=== PATIENT | female | born 1970 | race Caucasian/White ===

== ENCOUNTER 2018-01-05 17:24 | Emergency (ER) | payer OTHER ==
[2018-01-05 17:40] VITALS: BP 127/91
--- NOTE | 2018-01-05 19:28 | EDM.PDOC ---
ED HPI GENERAL MEDICAL PROBLEM - General Chief Complaint: Genitourinary Problem Stated Complaint: UTI Time Seen by Provider: 01/05/18 18:25 Source of Information: Reports: Patient History Limitations: Reports: No Limitations - History of Present Illness INITIAL COMMENTS - FREE TEXT/NARRATIVE: This lady comes in for UTI symptoms. She complains of burning on urination urination frequency urgency and that type of thing possibly some mild fever a little bit of back pain. She was seen on December 26 in clinic found to have a UTI put on nitrofurantoin which she is now finished. Culture then showed Escherichia coli which is sensitive to everything tested including the nitrofurantoin. She is asking if there could be some block it's it's preventing her from emptying her bladder and wonders if that might be making her go all the time but she doesn't feel a distended bladder however Pelvic Pain Score (Numeric/FACES): 6 - Related Data Allergies Allergy/AdvReac Type Severity Reaction Status Date / Time Penicillins Allergy Difficulty Verified 01/05/18 17:44 Swallowing Sulfa (Sulfonamide Allergy Rash Verified 01/05/18 17:44 Antibiotics) Home Meds: Home Meds Fluticasone Propionate [Flovent Diskus] 50 mcg IH DAILY 01/05/18 [History] Levonor/Ethi 1 tab PO DAILY 01/05/18 [History] Phenazopyridine [Pyridium] 200 mg PO TID 01/05/18 [History] Past Medical History HEENT History: Reports: Sinusitis Genitourinary History: Reports: UTI, Recurrent 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 ED EXAM, RENAL/ - Physical Exam Exam: See Below Exam Limited By: No Limitations General Appearance: Alert, WD/WN, No Apparent Distress Respiratory/Chest: Lungs Clear Cardiovascular: Regular Rate, Rhythm GI/Abdominal: Soft, Non-Tender (Female) Exam: Other (Bladder is not distended) Skin Exam: Warm, Dry Course - Vital Signs Last Recorded V/S: Last Vital Signs Temp 37.0 C 01/05/18 17:42 Pulse 129 H 01/05/18 17:42 Resp 16 01/05/18 17:42 BP 127/91 H 01/05/18 17:42 Pulse Ox 95 01/05/18 17:42 - Orders/Labs/Meds Orders: Active Orders 24 hr Category Date Time Status CULTURE URINE [RM] Stat Lab 01/05/18 19:19 Ordered Labs: Laboratory Tests 01/05/18 Range/Units 18:39 Urine Color [place] Urine Appearance Slightly cloudy Urine pH 5.0 (4.5-8.0) Ur Specific [place] 1.020 (1.008-1.030) Urine Protein 100 H (NEGATIVE) mg/dL Urine Glucose (UA) Normal (NEGATIVE) mg/dL Urine Ketones Negative (NEGATIVE) mg/dL Urine Occult Blood Large (NEGATIVE) Urine Nitrite Positive H (NEGATIVE) Urine Bilirubin Moderate (NEGATIVE) Urine Urobilinogen 8 (NORMAL) mg/dL Ur Leukocyte Esterase Small (NEGATIVE) Urine RBC 10-20 H (0-5) Urine WBC 40-50 H (0-5) Ur Epithelial Cells Few Amorphous Sediment Not seen Urine Bacteria Moderate Urine Mucus Moderate Departure - Departure Time of Disposition: 19:27 Disposition: Home, Self-Care 01 Condition: Fair Clinical Impression: UTI, Urinary tract infectious disease - Discharge Information Referrals: Wilman Bill MD [Primary Care Provider] - Additional Instructions: Take Cipro 500 mg twice daily for 1 week. A urine culture has been sent. Continue using the 80s O for discomfort. Be sure to drink a lot of water. Follow -up with your doctor in a few days. If there are questions about whether or not you're able to empty her bladder fully a catheter can be put in after you have voided to see if there is left over urine in the bladder. That could contribute to an infection. On examination her bladder did not appear to be distended. And it's necessary to treat the infection before anything else is done. You're welcome to return to the ER at any time - My Orders Last 24 Hours: My Active Orders 01/05/18 19:19 CULTURE URINE [RM] Stat - Assessment/Plan Last 24 Hours: My Active Orders 01/05/18 19:19 CULTURE URINE [RM] Stat
== END 2018-01-05 19:33 | disposition home or self-care (01) ==
LOC: JP.ED 17:24
DX: N39.0 Urinary tract infection, site not specified (principal); Z88.0 Allergy status to penicillin; Z88.2 Allergy status to sulfonamides; Z79.899 Other long term (current) drug therapy
CPT/HCPCS: 81001; 87086; 87088; 87186; 99284

== ENCOUNTER 2018-06-16 22:00 | Inpatient (IN) | payer OTHER ==
[2018-06-16] MEDS ORDERED: HYDROmorphone 0.5 MG/0.5 ML Syringe IVPUSH ONE ×2 (22:32→23:15)
[2018-06-16] MEDS ORDERED: Ondansetron 4 MG/2 ML SDV IVPUSH ONE (22:32)
--- NOTE | 2018-06-16 22:34 | EDM.PDOC ---
ED HPI GENERAL MEDICAL PROBLEM - General Chief Complaint: Chest Pain Stated Complaint: UPPER ABD PAIN Time Seen by Provider: 06/16/18 22:34 Source of Information: Reports: Patient History Limitations: Reports: No Limitations - History of Present Illness INITIAL COMMENTS - FREE TEXT/NARRATIVE: pt developed a sudden onset of upper abdomanal pain. She had supper chicken, corn and mashed potatoes and she developed the pain about 2 hrs later. She has not had discomfort like this in the past. She became nauseated and did vomit several times. She stated the pain made her get very sweaty. She has not had known gb problems. Onset: Today, Sudden, Other (This occured about 2 hours after eating. ) Duration: Hour(s): Location: Reports: Abdomen Associated Symptoms: Reports: Diaphoresis, Nausea/Vomiting, Other ( severe abdom ,anal pain. ) Chest Pain Score (Numeric/FACES): 8 Abdominal Pain Score (Numeric/FACES): 2 - Related Data Allergies Allergy/AdvReac Type Severity Reaction Status Date / Time Penicillins Allergy Difficulty Verified 06/16/18 22:23 Swallowing Sulfa (Sulfonamide Allergy Rash Verified 06/16/18 22:23 Antibiotics) Home Meds: Home Meds Fluticasone Propionate [Flovent Diskus] 50 mcg IH DAILY 01/05/18 [History] Cholecalciferol (Vitamin D3) [Vitamin D] 2 tab PO ACBREAKFAST 06/16/18 [History] Estrodim 2 tab PO BID 06/16/18 [History] Iron Extra 1 tab PO BID 06/16/18 [History] Niacinamide [Niacin] 1 tab PO ASDIRECTED 06/16/18 [History] [place]-3/DHA/Epa/Fish Oil [EPA-DHA 720 Softgel] 1 tab PO DAILY 06/16/18 [History] Pyridoxal Phosphate [Xjhdmjofi-5-Cldmwhcda] 50 mg PO BID 06/16/18 [History] Tetracumin 2 tab PO BID 06/16/18 [History] Zinc Citrate/Phytase [Zytaze] 1 tab PO BID 06/16/18 [History] Past Medical History HEENT History: Reports: Sinusitis Genitourinary History: Reports: UTI, Recurrent 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: , 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 (See Below) 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: menorrhagia with regular cycles Neurological History: Reports: Migraines Psychiatric History: Reports: Depression - Infectious Disease History Infectious Disease History: Reports: Chicken Pox Social & Family History - Family History Family Medical History: Noncontributory - Tobacco Use Smoking Status *Q: Never Smoker Second Hand Smoke Exposure: No - Caffeine Use Caffeine Use: Reports: Coffee, Tea - Recreational Drug Use Recreational Drug Use: No ED ROS GENERAL - Review of Systems Review Of Systems: See Below Constitutional: Reports: No Symptoms HEENT: Reports: No Symptoms Respiratory: Reports: No Symptoms Cardiovascular: Reports: No Symptoms, Other ( The abdomanal pain does go up into the chest at times. ) Endocrine: Reports: No Symptoms GI/Abdominal: Reports: Abdominal Pain, Nausea, Vomiting : Reports: No Symptoms Musculoskeletal: Reports: No Symptoms Skin: Reports: No Symptoms Neurological: Reports: No Symptoms ED EXAM, GENERAL - Physical Exam Exam: See Below Free Text/Narrative:: Pt arrived very uncomfortable with pain centering in the epigastric area. She has alot of rt upper abdomanal pain. She has vomited several times prior to the arrival. She has not had pain such as this . Exam Limited By: No Limitations General Appearance: Alert, Anxious, Severe Distress, Other (pupils equal and reactive. ) Ears: Normal TMs Nose: Normal Inspection Throat/Mouth: Normal Inspection Head: Atraumatic Neck: Normal Inspection Respiratory/Chest: No Respiratory Distress Cardiovascular: Regular Rate, Rhythm, Tachycardia GI/Abdominal: Soft, Non-Tender (Female) Exam: Deferred Rectal (Female) Exam: Deferred Back Exam: Normal Inspection Extremities: Normal Inspection Neurological: Alert, Oriented, Normal Cognition Course - Vital Signs Last Recorded V/S: Last Vital Signs Temp 36.1 C 06/19/18 15:29 Pulse 60 06/19/18 15:29 Resp 16 06/19/18 15:29 BP 112/59 L 06/19/18 15:29 Pulse Ox 60 L 06/19/18 15:29 - Orders/Labs/Meds Orders: Medication Orders Acetaminophen (Tylenol Extra Strength) 1,000 mg PO Q6H BRUNO Last Admin: 06/19/18 16:38 Dose: 1,000 mg Hydrocodone Bitart/Acetaminophen ([place] 325-5 Mg) 1 - 2 tab PO Q4H PRN PRN Reason: PAIN Last Admin: 06/19/18 14:34 Dose: 2 tab Fentanyl Citrate (Fentanyl In Ns 20 Mcg/Ml 30 Ml Tong Carrier) 0 mcg IV ASDIRECTED PRN; Protocol PRN Reason: DATA MODELER PAIN Dextrose/Lactated Ringer's (Dextrose 5%-Lactated Ringers) 1,000 mls @ 100 mls/ hr IV ASDIRECTED [facility] Last Admin: 06/19/18 12:36 Dose: 100 mls/hr Cefoxitin Sodium 2 gm/ Sodium (Chloride) 50 mls @ 100 mls/hr IV Q6H [facility] Last Admin: 06/19/18 16:37 Dose: 100 mls/hr Ibuprofen (Motrin) 600 mg PO Q6H [facility] Last Admin: 06/19/18 18:23 Dose: 600 mg Admin: 06/19/18 13:08 Dose: 600 mg Lorazepam (Ativan) 1 mg IVPUSH Q4H PRN PRN Reason: Nausea/Vomiting Last Admin: 06/19/18 13:21 Dose: 1 mg Naloxone HCl (Narcan) 0.1 mg IV ASDIRECTED PRN PRN Reason: RESP RATE BELOW Scopolamine Patch (Placement) 1 each TOP DAILY [facility] Last Admin: 06/19/18 13:09 Dose: Ondansetron HCl (Zofran) 4 mg IV Q4H PRN PRN Reason: Nausea/Vomiting Last Admin: 06/19/18 12:30 Dose: 4 mg Pantoprazole Sodium (Protonix Iv) 40 mg IVPUSH Q24H [facility] Last Admin: 06/19/18 13:09 Dose: 40 mg Scopolamine (Transderm-Scop) 1.5 mg TOP Q72H [facility] Labs: Laboratory Tests 06/16/18 06/16/18 06/16/18 Range/Units 22:33 22:33 22:33 WBC 12.8 H (4.5-11.0) K/uL RBC 4.37 (3.30-5.50) M/uL Hgb 13.0 (12.0-15.0) g/dL Hct 37.7 (36.0-48.0) % MCV 86 (80-98) fL MCH 30 (27-31) pg MCHC 35 (32-36) % Plt Count 230 (150-400) K/uL Neut % (Auto) 82 H (36-66) % Lymph % (Auto) 11 L (24-44) % [place] % (Auto) 6 (2-6) % Eos % (Auto) 0 L (2-4) % Baso % (Auto) 0 (0-1) % Sodium 137 L (140-148) mmol/L Potassium 3.7 (3.6-5.2) mmol/L Chloride 102 (100-108) mmol/L Carbon Dioxide 27 (21-32) mmol/L Anion Gap 11.7 (5.0-14.0) mmol/L BUN 15 (7-18) mg/dL Creatinine 0.8 (0.6-1.0) mg/dL Est Cr Clr Drug Dosing 73.46 mL/min Estimated GFR (MDRD) > 60 (>60) Glucose 131 H (74-106) mg/dL Calcium 9.1 (8.5-10.1) mg/dL Total Bilirubin 0.5 (0.2-1.0) mg/dL AST 81 H (15-37) U/L ALT 116 H (12-78) U/L Alkaline Phosphatase 54 (46-116) U/L Troponin I (0.000-0.056) ng/mL Total Protein 6.7 (6.4-8.2) g/dL Albumin 3.6 (3.4-5.0) g/dL Globulin 3.1 (2.3-3.5) g/dL Albumin/Globulin Ratio 1.2 (1.2-2.2) Amylase 127 H (25-115) U/L Lipase 1736 H (73-393) U/L Urine Color Red Urine Appearance Cloudy Urine pH 7.0 (4.5-8.0) Ur Specific [place] 1.010 (1.008-1.030) Urine Protein 30 H (NEGATIVE) mg/dL Urine Glucose (UA) Normal (NEGATIVE) mg/dL Urine Ketones 15 H (NEGATIVE) mg/dL Urine Occult Blood Large (NEGATIVE) Urine Nitrite Negative (NEGATIVE) Urine Bilirubin Negative (NEGATIVE) Urine Urobilinogen Normal (NORMAL) mg/dL Ur Leukocyte Esterase Small (NEGATIVE) Urine RBC Packed H (0-5) Urine WBC 0-5 (0-5) Ur Epithelial Cells Few Amorphous Sediment Few Urine Bacteria Rare Urine Mucus Few 06/16/18 Range/Units 22:34 WBC (4.5-11.0) K/uL RBC (3.30-5.50) M/uL Hgb (12.0-15.0) g/dL Hct (36.0-48.0) % MCV (80-98) fL MCH (27-31) pg MCHC (32-36) % Plt Count (150-400) K/uL Neut % (Auto) (36-66) % Lymph % (Auto) (24-44) % [place] % (Auto) (2-6) % Eos % (Auto) (2-4) % Baso % (Auto) (0-1) % Sodium (140-148) mmol/L Potassium (3.6-5.2) mmol/L Chloride (100-108) mmol/L Carbon Dioxide (21-32) mmol/L Anion Gap (5.0-14.0) mmol/L BUN (7-18) mg/dL Creatinine (0.6-1.0) mg/dL Est Cr Clr Drug Dosing mL/min Estimated GFR (MDRD) (>60) Glucose (74-106) mg/dL Calcium (8.5-10.1) mg/dL Total Bilirubin (0.2-1.0) mg/dL AST (15-37) U/L ALT (12-78) U/L Alkaline Phosphatase (46-116) U/L Troponin I < 0.017 (0.000-0.056) ng/mL Total Protein (6.4-8.2) g/dL Albumin (3.4-5.0) g/dL Globulin (2.3-3.5) g/dL Albumin/Globulin Ratio (1.2-2.2) Amylase (25-115) U/L Lipase (73-393) U/L Urine Color Urine Appearance Urine pH (4.5-8.0) Ur Specific [place] (1.008-1.030) Urine Protein (NEGATIVE) mg/dL Urine Glucose (UA) (NEGATIVE) mg/dL Urine Ketones (NEGATIVE) mg/dL Urine Occult Blood (NEGATIVE) Urine Nitrite (NEGATIVE) Urine Bilirubin (NEGATIVE) Urine Urobilinogen (NORMAL) mg/dL Ur Leukocyte Esterase (NEGATIVE) Urine RBC (0-5) Urine WBC (0-5) Ur Epithelial Cells Amorphous Sediment Urine Bacteria Urine Mucus Meds: Medications Generic Name Dose Route Start Last Admin Trade Name Freq PRN Reason Stop Dose Admin Acetaminophen 1,000 mg 06/19/18 16:00 06/19/18 16:38 Tylenol Extra Strength PO 1,000 mg Q6H [facility]URNO Administration Hydrocodone Bitart/Acetaminophen 1 - 2 tab 06/19/18 13:00 06/19/18 14:34 [place] 325-5 Mg PO 2 tab Q4H PRN Administration PAIN Fentanyl Citrate 0 mcg 06/19/18 12:08 Fentanyl In Ns 20 Mcg/Ml 30 Ml Tong Carrier IV ASDIRECTED PRN DATA MODELER PAIN Protocol Dextrose/Lactated Ringer's 1,000 mls @ 100 mls/hr 06/19/18 12:15 06/19/18 12: 36 Dextrose 5%-Lactated Ringers IV 100 mls/hr ASDIRECTED [facility]UNO Administration Cefoxitin Sodium 2 gm/ Sodium 50 mls @ 100 mls/hr 06/19/18 16:00 06/19/18 16: 37 Chloride IV 100 mls/hr Q6H BRUNO Administration Ibuprofen 600 mg 06/19/18 12:00 06/19/18 18:23 Motrin PO 600 mg Q6H [facility]UNO Administration Lorazepam 1 mg 06/19/18 13:13 06/19/18 13:21 Ativan IVPUSH 1 mg Q4H PRN Administration Nausea/Vomiting Naloxone HCl 0.1 mg 06/19/18 12:08 Narcan IV ASDIRECTED PRN RESP RATE BELOW Scopolamine Patch 1 each 06/19/18 14:00 06/19/18 13:09 Placement TOP Not Given DAILY [facility] Ondansetron HCl 4 mg 06/17/18 01:21 06/19/18 12:30 Zofran IV 4 mg Q4H PRN Administration Nausea/Vomiting Pantoprazole Sodium 40 mg 06/19/18 13:00 06/19/18 13:09 Protonix Iv IVPUSH 40 mg Q24H BRUNO Administration Scopolamine 1.5 mg 06/22/18 09:00 Transderm-Scop TOP Q72H BRUNO Discontinued Medications Generic Name Dose Route Start Last Admin Trade Name Freq PRN Reason Stop Dose Admin Acetaminophen 650 mg 06/17/18 01:21 06/18/18 11:45 Tylenol PO 650 mg Q4H PRN Administration Pain (Mild 1-3)/fever Acetaminophen 1,000 mg 06/19/18 08:00 06/19/18 08:40 Tylenol Extra Strength PO 06/19/18 08:01 1,000 mg ONETIME ONE Administration Albuterol 2.5 mg 06/17/18 01:21 Proventil Neb Soln NEB Q4H PRN Shortness Of Breath/wheezing Bisacodyl 5 mg 06/17/18 01:21 Dulcolax PO DAILY PRN Constipation Bupivacaine HCl/Epinephrine Bitart Confirm 06/19/18 08:34 06/19/18 10:35 Marcaine 0.5%/Epinephrine 1:200,000 Administered 06/19/18 08:35 20 ml Dose Administration 50 ml .ROUTE .STK-MED ONE Ropivacaine 32 ml/ 0 ml 06/19/18 09:00 06/19/18 10:12 Dexamethasone 8 mg/ NERVRT 80 syringe Epinephrine HCl 0.4 mg/ Sodium ASDIRECTED BRUNO Administration Chloride 45.6 ml Dexamethasone Confirm 06/19/18 07:10 Dexamethasone Administered 06/19/18 07:11 Dose 4 mg .ROUTE .STK-MED ONE Docusate Sodium 100 mg 06/17/18 01:21 Colace PO BID PRN Constipation Fentanyl Confirm 06/19/18 07:09 Sublimaze Administered 06/19/18 07:10 Dose 250 mcg .ROUTE .STK-MED ONE Glycopyrrolate Confirm 06/19/18 07:10 Robinul Administered 06/19/18 07:11 Dose 1 mg .ROUTE .STK-MED ONE Hydromorphone HCl 0.5 mg 06/16/18 22:32 06/16/18 22:36 Dilaudid IVPUSH 06/16/18 22:33 0.5 mg ONETIME ONE Administration Hydromorphone HCl 0.5 mg 06/16/18 23:15 06/16/18 23:20 Dilaudid IVPUSH 06/16/18 23:16 0.5 mg ONETIME ONE Administration Sodium Chloride 1,000 mls @ 999 mls/hr 06/16/18 22:45 06/16/18 22:44 Normal Saline IV 999 mls/hr ASDIRECTED BRUNO Administration Sodium Chloride 1,000 mls @ 999 mls/hr 06/16/18 23:30 06/16/18 23:45 Normal Saline IV 999 mls/hr ASDIRECTED BRUNO Administration Sodium Chloride 70 mls @ 3 mls/sec 06/17/18 00:27 06/17/18 00:54 Normal Saline IV 06/17/18 00:28 3 mls/sec ASDIRECTED STA Administration Lactated Ringer's 1,000 mls @ 125 mls/hr 06/17/18 01:21 06/17/18 01:52 Ringers, Lactated IV 125 mls/hr ASDIRECTED BRUNO Administration Lactated Ringer's 500 mls @ 500 mls/hr 06/17/18 11:30 Ringers, Lactated IV 06/17/18 12:31 ASDIRECTED BRUNO Levofloxacin/Dextrose 500 mg/ 100 mls @ 100 mls/hr 06/19/18 09:00 06/19/18 08 :41 Premix IV 06/19/18 09:59 100 mls/hr ONETIME ONE Administration Lactated Ringer's 1,000 mls @ 100 mls/hr 06/19/18 07:15 Ringers, Lactated IV ASDIRECTED BRUNO Lactated Ringer's Confirm 06/19/18 10:25 Ringers, Lactated Administered 06/19/18 10:26 Dose 1,000 mls @ as directed .ROUTE .STK-MED ONE Ibuprofen 600 mg 06/19/18 08:00 06/19/18 08:40 Motrin PO 06/19/18 08:01 600 mg ONETIME ONE Administration Iopamidol 100 ml 06/17/18 00:27 06/17/18 00:54 Isovue-300 (61%) IV 06/17/18 00:28 100 ml . DIRECTED STA Administration Ketamine HCl 28 mg 06/19/18 09:00 Ketalar IV ASDIRECTED [facility]UNO Lorazepam 1 mg 06/17/18 01:21 06/17/18 01:53 Ativan IV 1 mg Q6H PRN Administration Nausea/Vomiting Morphine Sulfate 2 mg 06/17/18 01:21 Morphine IVPUSH Q2H PRN Pain (severe 7-10) Neostigmine Methylsulfate Confirm 06/19/18 07:10 Neostigmine Administered 06/19/18 07:11 Dose 5 mg .ROUTE .STK-MED ONE Ondansetron HCl 4 mg 06/16/18 22:32 06/16/18 22:36 Zofran IVPUSH 08/13/18 22:33 4 mg ONETIME ONE Administration Ondansetron HCl 4 mg 06/17/18 00:32 06/17/18 00:42 Zofran IVPUSH 06/17/18 00:33 4 mg ONETIME ONE Administration Ondansetron HCl 4 mg 06/17/18 01:21 Zofran Odt PO Q6H PRN Nausea able to take PO Ondansetron HCl Confirm 06/19/18 07:10 Zofran Administered 06/19/18 07:11 Dose 4 mg .ROUTE .STK-MED ONE Oxycodone/Acetaminophen 1 tab 06/17/18 01:21 Percocet 325-5 Mg PO Q4H PRN Pain (moderate 4-6) Pantoprazole Sodium 40 mg 06/17/18 01:21 06/17/18 01:53 Protonix Iv IV 40 mg Q12H BRUNO Administration Pantoprazole Sodium 40 mg 06/17/18 10:00 Protonix Iv IV Q12H BRUNO Propofol Confirm 06/19/18 07:10 Diprivan 20 Ml Administered 06/19/18 07:11 Dose 200 mg .ROUTE .STK-MED ONE Rocuronium [place] Confirm 06/19/18 07:10 Zemuron Administered 06/19/18 07:11 Dose 50 mg .ROUTE .STK-MED ONE Scopolamine 1.5 mg 06/19/18 09:41 06/19/18 10:11 Transderm-Scop TOP 06/19/18 09:42 1.5 mg ONETIME ONE Administration Succinylcholine Chloride Confirm 06/19/18 07:10 Quelicin Administered 06/19/18 07:11 Dose 200 mg .ROUTE .STK-MED ONE Zolpidem Tartrate 5 mg 06/17/18 01:21 Ambien PO BEDTIME PRN Sleep - Re-Assessments/Exams Free Text/Narrative Re-Assessment/Exam: 06/17/18 00:02 pt was found to have elevated liver enzymes. Her lipase is high. She continues to be very uncomfortable. A US of the gall bladder was obtained. 06/17/18 00:20 Us did not reveal any evidence of GB disease. Will obtain a cat scan of the abdoman. 06/19/18 18:46 cat scan does show some layering of Calcium. Departure - Departure Time of Disposition: 00:20 Disposition: Admitted As Inpatient 64 Condition: Fair Clinical Impression: Pancreatitis
[2018-06-16] MEDS ORDERED: Sodium Chloride 0.9% 1,000 ML IV SCH ×2 (22:45→23:30)
[2018-06-17] MEDS ORDERED: Iopamidol 612 MG/ML 100 ML Bottle IV STA (00:27)
[2018-06-17] MEDS ORDERED: Ondansetron 4 MG/2 ML SDV IVPUSH ONE (00:32)
--- NOTE | 2018-06-17 01:11 | PCM.HP ---
H&P History of Present Illness - General Date of Service: 06/16/18 Admit Problem/Dx: Admission Diagnosis/Problem Admission Diagnosis/Problem Pancreatitis Source of Information: Patient, Family ( Kin) History Limitations: Reports: No Limitations - History of Present Illness Initial Comments - Free Text/Narative: pt developed a sudden onset of upper abdomanal pain. She had supper chicken, corn and mashed potatoes and she developed the pain about 2 hrs later. She has not had discomfort like this in the past. She became nauseated and did vomit several times. She stated the pain made her get very sweaty. She has not had known gb problems. Onset: Today, Sudden, Other (This occured about 2 hours after eating. ) Duration: Hour(s): Location: Reports: Abdomen Associated Symptoms: Reports: Diaphoresis, Nausea/Vomiting, Other ( severe abdom ,anal pain. ) Chest Onset of Symptoms: Reports: Sudden Duration of Symptoms: Reports: Hour(s): Location: Reports: Abdomen Quality: Reports: Sharp, Other Severity: Severe (Nausea) Improves with: Reports: None Worsens with: Reports: None Associated Symptoms: Reports: Fever/Chills, Loss of Appetite, Malaise, Nausea/ Vomiting, Weakness Chest Pain Score (Numeric/FACES): 8 - Related Data Allergies/Adverse Reactions: Allergies Allergy/AdvReac Type Severity Reaction Status Date / Time Penicillins Allergy Difficulty Verified 06/16/18 22:23 Swallowing Sulfa (Sulfonamide Allergy Rash Verified 06/16/18 22:23 Antibiotics) Home Medications: Home Meds Fluticasone Propionate [Flovent Diskus] 50 mcg IH DAILY 01/05/18 [History] Cholecalciferol (Vitamin D3) [Vitamin D] 2 tab PO ACBREAKFAST 06/16/18 [History] Estrodim 2 tab PO BID 06/16/18 [History] Iron Extra 1 tab PO BID 06/16/18 [History] Niacinamide [Niacin] 1 tab PO ASDIRECTED 06/16/18 [History] [place]-3/DHA/Epa/Fish Oil [EPA-DHA 720 Softgel] 1 tab PO DAILY 06/16/18 [History] Pyridoxal Phosphate [Isyvyyira-3-Wlcikqsqe] 50 mg PO BID 06/16/18 [History] Tetracumin 2 tab PO BID 06/16/18 [History] Zinc Citrate/Phytase [Zytaze] 1 tab PO BID 06/16/18 [History] Past Medical History HEENT History: Reports: Sinusitis Genitourinary History: Reports: UTI, Recurrent 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: , Other (See Below) Other OB/BYN History: menorrhagia with regular cycles Neurological History: Reports: Migraines Psychiatric History: Reports: Depression - Infectious Disease History Infectious Disease History: Reports: Chicken Pox Social & Family History - Family History Family Medical History: Noncontributory - Tobacco Use Smoking Status *Q: Never Smoker Second Hand Smoke Exposure: No - Caffeine Use Caffeine Use: Reports: Coffee, Tea - Recreational Drug Use Recreational Drug Use: No - Living Situation & Occupation Living situation: Reports: H&P Review of Systems - Review of Systems: Review Of Systems: See Below General: Reports: Fever, Chills, Malaise, Weakness, Fatigue, Diaphoresis, Other (Acute abdominal pain) HEENT: Reports: No Symptoms Pulmonary: Reports: No Symptoms Cardiovascular: Reports: No Symptoms Gastrointestinal: Reports: Abdominal Pain, Decreased Appetite, Nausea, Vomiting Genitourinary: Reports: No Symptoms Musculoskeletal: Reports: No Symptoms Skin: Reports: No Symptoms Psychiatric: Reports: No Symptoms Neurological: Reports: No Symptoms Hematologic/Lymphatic: Reports: No Symptoms Immunologic: Reports: No Symptoms Exam - Exam Exam: See Below - Vital Signs Vital Signs: Last Vital Signs Temp 35.8 C 06/16/18 22:24 Pulse 74 06/16/18 23:22 Resp 24 H 06/16/18 23:22 BP 130/80 06/16/18 23:22 Pulse Ox 100 06/16/18 22:24 Weight: 61.6 kg - Exam General: Alert, Oriented, Cooperative, Severe Distress (Actively vomiting during exam) HEENT: PERRLA, Conjunctiva Clear, EACs Clear, Hearing Intact Neck: Supple, Trachea Midline Lungs: Clear to Auscultation, Normal Respiratory Effort Cardiovascular: Regular Rate, Regular Rhythm, Normal S1, Normal S2 GI/Abdominal Exam: Soft, Tender (Upper abdominal pain acute), Abnormal Bowel Sounds (Hypoactive) (Female) Exam: Deferred Rectal (Female) Exam: Deferred Back Exam: Normal Inspection, Full Range of Motion, NT Extremities: Normal Inspection, Normal Range of Motion, Non-Tender, No Pedal Edema, Normal Capillary Refill Skin: Warm, Intact, Moist Neurological: Cranial Nerves Intact, Reflexes Equal Bilateral Neuro Extensive - Mental Status: Alert, Oriented x3, Normal Mood/Affect, Normal Cognition Neuro Extensive - Motor, Sensory, Reflexes: Normal Gait, Normal Reflexes Psychiatric: Alert, Normal Affect, Normal Mood - Patient Data Lab Results Last 24 hrs: Laboratory Results - last 24 hr 06/16/18 06/16/18 06/16/18 Range/Units 22:33 22:33 22:34 WBC 12.8 H (4.5-11.0) K/uL RBC 4.37 (3.30-5.50) M/uL Hgb 13.0 (12.0-15.0) g/dL Hct 37.7 (36.0-48.0) % MCV 86 (80-98) fL MCH 30 (27-31) pg MCHC 35 (32-36) % Plt Count 230 (150-400) K/uL Neut % (Auto) 82 H (36-66) % Lymph % (Auto) 11 L (24-44) % [place] % (Auto) 6 (2-6) % Eos % (Auto) 0 L (2-4) % Baso % (Auto) 0 (0-1) % Sodium 137 L (140-148) mmol/L Potassium 3.7 (3.6-5.2) mmol/L Chloride 102 (100-108) mmol/L Carbon Dioxide 27 (21-32) mmol/L Anion Gap 11.7 (5.0-14.0) mmol/L BUN 15 (7-18) mg/dL Creatinine 0.8 (0.6-1.0) mg/dL Est Cr Clr Drug Dosing 73.46 mL/min Estimated GFR (MDRD) > 60 (>60) Glucose 131 H (74-106) mg/dL Calcium 9.1 (8.5-10.1) mg/dL Total Bilirubin 0.5 (0.2-1.0) mg/dL AST 81 H (15-37) U/L ALT 116 H (12-78) U/L Alkaline Phosphatase 54 (46-116) U/L Troponin I < 0.017 (0.000-0.056) ng/mL Total Protein 6.7 (6.4-8.2) g/dL Albumin 3.6 (3.4-5.0) g/dL Globulin 3.1 (2.3-3.5) g/dL Albumin/Globulin Ratio 1.2 (1.2-2.2) Amylase 127 H (25-115) U/L Lipase 1736 H (73-393) U/L Result Diagrams: 06/16/18 22:33 06/16/18 22:33 - Problem List (1) Pancreatitis SNOMED Code(s): 29236818 ICD Code: K85.90 - ACUTE PANCREATITIS WITHOUT NECROSIS OR INFECTION, UNSP Status: Acute Priority: High Current Visit: Yes Qualifiers: Chronicity: acute Pancreatitis type: unspecified pancreatitis type Problem List Initiated/Reviewed/Updated: Yes Orders Last 24hrs: Active Orders 24 hr Category Date Time Status Patient Status Manage Transfer [TRANSFER] Routine ADT 06/17/18 00:51 Ordered EKG Documentation Completion [RC] ASDIRECTED Care 06/16/18 22:33 Active Abdomen Ltd [US] Stat Exams 06/16/18 23:13 Taken Abdomen Pelvis w Cont [CT] Stat Exams 06/17/18 00:19 Ordered UA W/MICROSCOPIC [URIN] Urgent Lab 06/16/18 22:33 Ordered Sodium Chloride 0.9% [Normal Saline] 1,000 ml Med 06/16/18 22:45 Active IV ASDIRECTED Sodium Chloride 0.9% [Normal Saline] 1,000 ml Med 06/16/18 23:30 Active IV ASDIRECTED Resuscitation Status Routine Resus Stat 06/17/18 00:52 Ordered EKG 12 Lead [EK] Routine Ther 06/16/18 22:33 Ordered Medication Orders Sodium Chloride (Normal Saline) 1,000 mls @ 999 mls/hr IV ASDIRECTED [facility] Last Admin: 06/16/18 22:44 Dose: 999 mls/hr Sodium Chloride (Normal Saline) 1,000 mls @ 999 mls/hr IV ASDIRECTED [facility] Last Admin: 06/16/18 23:45 Dose: 999 mls/hr Assessment/Plan Comment:: ASSESSMENT / PLAN -This is a 47-year-old female present to ER with complaints of acute abdominal pain starting this evening, having nausea, vomiting and a diarrhea stool. ER workup shows a CBC elevated white count at 12.8, hemoglobin 13.0, hematocrit 37.7, platelets 2:30, chemistry elevated liver function tests, amylase 1736, lipase 127. Ultrasound of upper abdomen does not show any gallbladder disease. Abdomen pelvis CT scan pending. Pancreatitis -Admit to [address] [place] [address] for further monitoring -IV Fluids for rehydration LR at 125 mL per hour -Pain medication ordered -Advise to notify nurses of any chest pain or other symptoms -And a.m. labs: CBC, BMP, lactic acid Maintenance issues -Orders home meds: On hold -Nutrition: Nothing by mouth -Dykes catheter not indicated at this time -DVT: SCD -PPI: IV Protonix 40mg daily CODE STATUS: FULL CODE Admission status: Admit to [address] [place] [address] Admission justification. This patient will be admitted for inpatient services and is medically appropriate meeting medical necessity for inpatient admission as outlined in my documentation. I reasonably expect the patient will require inpatient services that span. Time over 2 midnights. I reasonably expect this patient to be discharged or transferred within 96 hours after admission to the [facility]. Disposition; home Primary care provider: Dr. Bill Hospitalist: Dr. Nuñez
[2018-06-17] MEDS ORDERED: Pantoprazole 40 MG Vial IV SCH ×2 (01:21→10:00)
[2018-06-17] MEDS ORDERED: Albuterol 0.083% 2.5 MG/3 ML Neb Soln NEB PRN (01:21)
[2018-06-17] MEDS ORDERED: Docusate Sodium 100 MG Cap PO PRN (01:21)
[2018-06-17] MEDS ORDERED: Ondansetron 4 MG Tab.DIS PO PRN (01:21)
[2018-06-17] MEDS ORDERED: Morphine 2 MG/ML Syringe IVPUSH PRN (01:21)
[2018-06-17] MEDS ORDERED: Acetaminophen 325 MG Tab PO PRN (01:21)
[2018-06-17] MEDS ORDERED: Ondansetron 4 MG/2 ML SDV IV PRN (01:21)
[2018-06-17] MEDS ORDERED: Lactated Ringers 1,000 ML IV SCH (01:21)
[2018-06-17] MEDS ORDERED: Bisacodyl 5 MG Tab PO PRN (01:21)
[2018-06-17] MEDS ORDERED: Zolpidem 5 MG Tab PO PRN (01:21)
[2018-06-17] MEDS ORDERED: LORazepam 2 MG/ML SDV IV PRN (01:21)
[2018-06-17] MEDS ORDERED: Acetaminophen/oxyCODONE 325-5 MG Tab PO PRN (01:21)
--- NOTE | 2018-06-17 09:39 | PCM.PN ---
- General Info Date of Service: 06/17/18 Functional Status: Reports: Pain Controlled - Review of Systems General: Denies: Fever Gastrointestinal: Reports: Abdominal Pain, Nausea Systems Review Comment:: There were no acute events overnight. The patient has not had any fevers. Her abdominal pain has resolved. She does not have nausea this morning. Lipase level is trending down. White blood cell count is slightly better but still mildly elevated. - Patient Data Vitals - Most Recent: Last Vital Signs Temp 36.2 C 06/17/18 05:21 Pulse 101 H 06/17/18 05:21 Resp 16 06/17/18 05:21 BP 107/57 L 06/17/18 05:21 Pulse Ox 93 L 06/17/18 05:21 Weight - Most Recent: 63.049 kg I&O - Last 24 Hours: Intake & Output 06/16/18 06/17/18 06/17/18 22:59 06:59 14:59 Output Total 400 Balance -400 Lab Results Last 24 Hours: Laboratory Results - last 24 hr 06/16/18 06/16/18 06/16/18 Range/Units 22:33 22:33 22:33 WBC 12.8 H (4.5-11.0) K/uL RBC 4.37 (3.30-5.50) M/uL Hgb 13.0 (12.0-15.0) g/dL Hct 37.7 (36.0-48.0) % MCV 86 (80-98) fL MCH 30 (27-31) pg MCHC 35 (32-36) % Plt Count 230 (150-400) K/uL Neut % (Auto) 82 H (36-66) % Lymph % (Auto) 11 L (24-44) % [place] % (Auto) 6 (2-6) % Eos % (Auto) 0 L (2-4) % Baso % (Auto) 0 (0-1) % Sodium 137 L (140-148) mmol/L Potassium 3.7 (3.6-5.2) mmol/L Chloride 102 (100-108) mmol/L Carbon Dioxide 27 (21-32) mmol/L Anion Gap 11.7 (5.0-14.0) mmol/L BUN 15 (7-18) mg/dL Creatinine 0.8 (0.6-1.0) mg/dL Est Cr Clr Drug Dosing 73.46 mL/min Estimated GFR (MDRD) > 60 (>60) Glucose 131 H (74-106) mg/dL Calcium 9.1 (8.5-10.1) mg/dL Total Bilirubin 0.5 (0.2-1.0) mg/dL AST 81 H (15-37) U/L ALT 116 H (12-78) U/L Alkaline Phosphatase 54 (46-116) U/L Troponin I (0.000-0.056) ng/mL Total Protein 6.7 (6.4-8.2) g/dL Albumin 3.6 (3.4-5.0) g/dL Globulin 3.1 (2.3-3.5) g/dL Albumin/Globulin Ratio 1.2 (1.2-2.2) Amylase 127 H (25-115) U/L Lipase 1736 H (73-393) U/L Urine Color Red Urine Appearance Cloudy Urine pH 7.0 (4.5-8.0) Ur Specific [place] 1.010 (1.008-1.030) Urine Protein 30 H (NEGATIVE) mg/dL Urine Glucose (UA) Normal (NEGATIVE) mg/dL Urine Ketones 15 H (NEGATIVE) mg/dL Urine Occult Blood Large (NEGATIVE) Urine Nitrite Negative (NEGATIVE) Urine Bilirubin Negative (NEGATIVE) Urine Urobilinogen Normal (NORMAL) mg/dL Ur Leukocyte Esterase Small (NEGATIVE) Urine RBC Packed H (0-5) Urine WBC 0-5 (0-5) Ur Epithelial Cells Few Amorphous Sediment Few Urine Bacteria Rare Urine Mucus Few 06/16/18 06/17/18 06/17/18 Range/Units 22:34 05:10 05:11 WBC 11.8 H (4.5-11.0) K/uL RBC 4.04 (3.30-5.50) M/uL Hgb 11.8 L (12.0-15.0) g/dL Hct 35.4 L (36.0-48.0) % MCV 88 (80-98) fL MCH 29 (27-31) pg MCHC 33 (32-36) % Plt Count 218 (150-400) K/uL Neut % (Auto) 89 H (36-66) % Lymph % (Auto) 8 L (24-44) % [place] % (Auto) 3 (2-6) % Eos % (Auto) 0 L (2-4) % Baso % (Auto) 0 (0-1) % Sodium (140-148) mmol/L Potassium (3.6-5.2) mmol/L Chloride (100-108) mmol/L Carbon Dioxide (21-32) mmol/L Anion Gap (5.0-14.0) mmol/L BUN (7-18) mg/dL Creatinine (0.6-1.0) mg/dL Est Cr Clr Drug Dosing mL/min Estimated GFR (MDRD) (>60) Glucose (74-106) mg/dL Calcium (8.5-10.1) mg/dL Total Bilirubin (0.2-1.0) mg/dL AST (15-37) U/L ALT (12-78) U/L Alkaline Phosphatase (46-116) U/L Troponin I < 0.017 (0.000-0.056) ng/mL Total Protein (6.4-8.2) g/dL Albumin (3.4-5.0) g/dL Globulin (2.3-3.5) g/dL Albumin/Globulin Ratio (1.2-2.2) Amylase 144 H (25-115) U/L Lipase 1193 H (73-393) U/L Urine Color Urine Appearance Urine pH (4.5-8.0) Ur Specific [place] (1.008-1.030) Urine Protein (NEGATIVE) mg/dL Urine Glucose (UA) (NEGATIVE) mg/dL Urine Ketones (NEGATIVE) mg/dL Urine Occult Blood (NEGATIVE) Urine Nitrite (NEGATIVE) Urine Bilirubin (NEGATIVE) Urine Urobilinogen (NORMAL) mg/dL Ur Leukocyte Esterase (NEGATIVE) Urine RBC (0-5) Urine WBC (0-5) Ur Epithelial Cells Amorphous Sediment Urine Bacteria Urine Mucus 06/17/18 Range/Units 05:11 WBC (4.5-11.0) K/uL RBC (3.30-5.50) M/uL Hgb (12.0-15.0) g/dL Hct (36.0-48.0) % MCV (80-98) fL MCH (27-31) pg MCHC (32-36) % Plt Count (150-400) K/uL Neut % (Auto) (36-66) % Lymph % (Auto) (24-44) % [place] % (Auto) (2-6) % Eos % (Auto) (2-4) % Baso % (Auto) (0-1) % Sodium 138 L (140-148) mmol/L Potassium 4.2 (3.6-5.2) mmol/L Chloride 106 (100-108) mmol/L Carbon Dioxide 27 (21-32) mmol/L Anion Gap 9.2 (5.0-14.0) mmol/L BUN 11 (7-18) mg/dL Creatinine 0.7 (0.6-1.0) mg/dL Est Cr Clr Drug Dosing 83.95 mL/min Estimated GFR (MDRD) > 60 (>60) Glucose 124 H (74-106) mg/dL Calcium 7.9 L (8.5-10.1) mg/dL Total Bilirubin (0.2-1.0) mg/dL AST (15-37) U/L ALT (12-78) U/L Alkaline Phosphatase (46-116) U/L Troponin I (0.000-0.056) ng/mL Total Protein (6.4-8.2) g/dL Albumin (3.4-5.0) g/dL Globulin (2.3-3.5) g/dL Albumin/Globulin Ratio (1.2-2.2) Amylase (25-115) U/L Lipase (73-393) U/L Urine Color Urine Appearance Urine pH (4.5-8.0) Ur Specific [place] (1.008-1.030) Urine Protein (NEGATIVE) mg/dL Urine Glucose (UA) (NEGATIVE) mg/dL Urine Ketones (NEGATIVE) mg/dL Urine Occult Blood (NEGATIVE) Urine Nitrite (NEGATIVE) Urine Bilirubin (NEGATIVE) Urine Urobilinogen (NORMAL) mg/dL Ur Leukocyte Esterase (NEGATIVE) Urine RBC (0-5) Urine WBC (0-5) Ur Epithelial Cells Amorphous Sediment Urine Bacteria Urine Mucus Med Orders - Current: Current Medications Acetaminophen (Tylenol) 650 mg PO Q4H PRN PRN Reason: Pain (Mild 1-3)/fever Albuterol (Proventil Neb Soln) 2.5 mg NEB Q4H PRN PRN Reason: Shortness Of Breath/wheezing Bisacodyl (Dulcolax) 5 mg PO DAILY PRN PRN Reason: Constipation Docusate Sodium (Colace) 100 mg PO BID PRN PRN Reason: Constipation Lorazepam (Ativan) 1 mg IV Q6H PRN PRN Reason: Nausea/Vomiting Last Admin: 06/17/18 01:53 Dose: 1 mg Ondansetron HCl (Zofran Odt) 4 mg PO Q6H PRN PRN Reason: Nausea able to take PO Ondansetron HCl (Zofran) 4 mg IV Q4H PRN PRN Reason: Nausea/Vomiting Oxycodone/Acetaminophen (Percocet 325-5 Mg) 1 tab PO Q4H PRN PRN Reason: Pain (moderate 4-6) Zolpidem Tartrate (Ambien) 5 mg PO BEDTIME PRN PRN Reason: Sleep Discontinued Medications Hydromorphone HCl (Dilaudid) 0.5 mg IVPUSH ONETIME ONE Stop: 06/16/18 22:33 Last Admin: 06/16/18 22:36 Dose: 0.5 mg Hydromorphone HCl (Dilaudid) 0.5 mg IVPUSH ONETIME ONE Stop: 06/16/18 23:16 Last Admin: 06/16/18 23:20 Dose: 0.5 mg Sodium Chloride (Normal Saline) 1,000 mls @ 999 mls/hr IV ASDIRECTED [facility] Last Admin: 06/16/18 22:44 Dose: 999 mls/hr Sodium Chloride (Normal Saline) 1,000 mls @ 999 mls/hr IV ASDIRECTED [facility] Last Admin: 06/16/18 23:45 Dose: 999 mls/hr Sodium Chloride (Normal Saline) 70 mls @ 3 mls/sec IV ASDIRECTED [facility] Stop: 06/17/18 00:28 Last Admin: 06/17/18 00:54 Dose: 3 mls/sec Lactated Ringer's (Ringers, Lactated) 1,000 mls @ 125 mls/hr IV ASDIRECTED [facility] Last Admin: 06/17/18 01:52 Dose: 125 mls/hr Iopamidol (Isovue-300 (61%)) 100 ml IV . DIRECTED STA Stop: 06/17/18 00:28 Last Admin: 06/17/18 00:54 Dose: 100 ml Morphine Sulfate (Morphine) 2 mg IVPUSH Q2H PRN PRN Reason: Pain (severe 7-10) Ondansetron HCl (Zofran) 4 mg IVPUSH ONETIME ONE Stop: 06/16/18 22:33 Last Admin: 06/16/18 22:36 Dose: 4 mg Ondansetron HCl (Zofran) 4 mg IVPUSH ONETIME ONE Stop: 06/17/18 00:33 Last Admin: 06/17/18 00:42 Dose: 4 mg Pantoprazole Sodium (Protonix Iv) 40 mg IV Q12H [facility] Last Admin: 06/17/18 01:53 Dose: 40 mg Pantoprazole Sodium (Protonix Iv) 40 mg IV Q12H [facility] - Exam Quality Assessment: No: Supplemental Oxygen General: Alert, Oriented, Cooperative, No Acute Distress Lungs: Normal Respiratory Effort GI/Abdominal Exam: Soft, No Distention Extremities: No Pedal Edema Psy/Mental Status: Alert, Normal Affect - Problem List Review Problem List Initiated/Reviewed/Updated: Yes - My Orders Last 24 Hours: My Active Orders 06/17/18 Lunch Full Liquid Diet [DIET] 06/18/18 05:00 CBC W/O DIFF,HEMOGRAM [HEME] Timed (1) COMPREHENSIVE METABOLIC PN,CMP [CHEM] Timed LIPASE [CHEM] Timed 06/18/18 07:00 Cholescintigraphy w Pharm Int [NM] Routine 06/18/18 Breakfast NPO After Midnight [Nothing per Oral After Midnight Diet] [DIET] - Plan Plan:: ASSESSMENT / PLAN Biliary colic vs biliary dyskinesia, suspected - right upper quadrant pain with nausea, vomiting and some diarrhea. Sludge noted on the CT scan but ultrasound essentially normal. Pain has resolved. CT did not show any abnormalities on the pancreas. Patient has had diarrhea for several months as well as bloating after fatty meals over the past few months. -HIDA scan in the am -Pain control if it returns -Repeat CBC and CMP as well as lipase in the morning Maintenance issues -Nutrition: Full liquids -Dykes catheter not indicated at this time -DVT: SCD -GI: PPI Disposition; home Brandon Nuñez M.D.
[2018-06-17] MEDS ORDERED: Lactated Ringers 500 ML IV SCH (11:30)
--- NOTE | 2018-06-18 10:52 | NM ---
Nuclear medicine HIDA scan. History: Biliary colic. Technique: The patient received intravenously 5.2 millicuries of technetium 99 Choletec followed by s tatic imaging of the upper abdomen. Subsequently, the patient received 1.23 micrograms of CCK followe d by the gallbladder ejection fraction calculation. The patient complained pain and nausea similar to the presenting symptoms Findings: There is uniform distribution of the radiopharmaceutical throughout the liver. The gallblad cristel is visualized at 10 minutes into the exam. There is emptying through the common bile duct into t he small bowel. The gallbladder ejection fraction is significantly decreased equal to 7.6%. Impression: 1. Normal visualization of the gallbladder. 2. Significantly diminished ejection fraction with reproduction of clinical symptoms. The findings ar e suggestive of biliary dyskinesia.
--- NOTE | 2018-06-18 11:20 | PCM.PN ---
- General Info Date of Service: 06/18/18 Functional Status: Reports: Pain Controlled, Tolerating Diet - Review of Systems General: Denies: Fever Gastrointestinal: Reports: Abdominal Pain Systems Review Comment:: there were no acute events overnight. The patient reports some very mild right upper quadrant soreness but overall her pain is fairly minimal. No significant nausea. She did tolerate full liquids okay yesterday. She has not had any fevers. No vomiting. HIDA scan showed severe biliary dyskinesia area - Patient Data Vitals - Most Recent: Last Vital Signs Temp 36.3 C 06/18/18 06:00 Pulse 70 06/18/18 06:00 Resp 18 06/18/18 06:00 BP 101/62 06/18/18 06:00 Pulse Ox 98 06/18/18 06:00 Weight - Most Recent: 63.049 kg I&O - Last 24 Hours: Intake & Output 06/17/18 06/18/18 06/18/18 22:59 06:59 14:59 Intake Total 400 Output Total 1450 Balance 400 -1450 Lab Results Last 24 Hours: Laboratory Results - last 24 hr 06/18/18 06/18/18 Range/Units 05:37 05:37 WBC 5.4 (4.5-11.0) K/uL RBC 3.61 (3.30-5.50) M/uL Hgb 10.4 L (12.0-15.0) g/dL Hct 32.3 L (36.0-48.0) % MCV 90 (80-98) fL MCH 29 (27-31) pg MCHC 32 (32-36) % Plt Count 182 (150-400) K/uL Sodium 142 (140-148) mmol/L Potassium 3.8 (3.6-5.2) mmol/L Chloride 108 (100-108) mmol/L Carbon Dioxide 28 (21-32) mmol/L Anion Gap 6.5 (5.0-14.0) mmol/L BUN 7 (7-18) mg/dL Creatinine 0.7 (0.6-1.0) mg/dL Est Cr Clr Drug Dosing 84.56 mL/min Estimated GFR (MDRD) > 60 (>60) Glucose 84 (74-106) mg/dL Calcium 7.9 L (8.5-10.1) mg/dL Total Bilirubin 0.5 (0.2-1.0) mg/dL AST 37 (15-37) U/L ALT 83 H (12-78) U/L Alkaline Phosphatase 43 L (46-116) U/L Total Protein 5.0 L (6.4-8.2) g/dL Albumin 2.6 L (3.4-5.0) g/dL Globulin 2.4 (2.3-3.5) g/dL Albumin/Globulin Ratio 1.1 L (1.2-2.2) Lipase 266 (73-393) U/L Med Orders - Current: Current Medications Acetaminophen (Tylenol) 650 mg PO Q4H PRN PRN Reason: Pain (Mild 1-3)/fever Albuterol (Proventil Neb Soln) 2.5 mg NEB Q4H PRN PRN Reason: Shortness Of Breath/wheezing Bisacodyl (Dulcolax) 5 mg PO DAILY PRN PRN Reason: Constipation Docusate Sodium (Colace) 100 mg PO BID PRN PRN Reason: Constipation Lorazepam (Ativan) 1 mg IV Q6H PRN PRN Reason: Nausea/Vomiting Last Admin: 06/17/18 01:53 Dose: 1 mg Ondansetron HCl (Zofran Odt) 4 mg PO Q6H PRN PRN Reason: Nausea able to take PO Ondansetron HCl (Zofran) 4 mg IV Q4H PRN PRN Reason: Nausea/Vomiting Oxycodone/Acetaminophen (Percocet 325-5 Mg) 1 tab PO Q4H PRN PRN Reason: Pain (moderate 4-6) Zolpidem Tartrate (Ambien) 5 mg PO BEDTIME PRN PRN Reason: Sleep Discontinued Medications Hydromorphone HCl (Dilaudid) 0.5 mg IVPUSH ONETIME ONE Stop: 06/16/18 22:33 Last Admin: 06/16/18 22:36 Dose: 0.5 mg Hydromorphone HCl (Dilaudid) 0.5 mg IVPUSH ONETIME ONE Stop: 06/16/18 23:16 Last Admin: 06/16/18 23:20 Dose: 0.5 mg Sodium Chloride (Normal Saline) 1,000 mls @ 999 mls/hr IV ASDIRECTED [facility] Last Admin: 06/16/18 22:44 Dose: 999 mls/hr Sodium Chloride (Normal Saline) 1,000 mls @ 999 mls/hr IV ASDIRECTED [facility] Last Admin: 06/16/18 23:45 Dose: 999 mls/hr Sodium Chloride (Normal Saline) 70 mls @ 3 mls/sec IV ASDIRECTED [facility] Stop: 06/17/18 00:28 Last Admin: 06/17/18 00:54 Dose: 3 mls/sec Lactated Ringer's (Ringers, Lactated) 1,000 mls @ 125 mls/hr IV ASDIRECTED [facility] Last Admin: 06/17/18 01:52 Dose: 125 mls/hr Lactated Ringer's (Ringers, Lactated) 500 mls @ 500 mls/hr IV ASDIRECTED [facility] Stop: 06/17/18 12:31 Iopamidol (Isovue-300 (61%)) 100 ml IV . DIRECTED STA Stop: 06/17/18 00:28 Last Admin: 06/17/18 00:54 Dose: 100 ml Morphine Sulfate (Morphine) 2 mg IVPUSH Q2H PRN PRN Reason: Pain (severe 7-10) Ondansetron HCl (Zofran) 4 mg IVPUSH ONETIME ONE Stop: 06/16/18 22:33 Last Admin: 06/16/18 22:36 Dose: 4 mg Ondansetron HCl (Zofran) 4 mg IVPUSH ONETIME ONE Stop: 06/17/18 00:33 Last Admin: 06/17/18 00:42 Dose: 4 mg Pantoprazole Sodium (Protonix Iv) 40 mg IV Q12H [facility] Last Admin: 06/17/18 01:53 Dose: 40 mg Pantoprazole Sodium (Protonix Iv) 40 mg IV Q12H BRUNO - Exam Quality Assessment: No: Supplemental Oxygen General: Alert, Oriented, Cooperative, No Acute Distress Lungs: Normal Respiratory Effort GI/Abdominal Exam: Soft, No Distention Extremities: No Pedal Edema Psy/Mental Status: Alert, Normal Affect - Problem List Review Problem List Initiated/Reviewed/Updated: Yes - My Orders Last 24 Hours: My Active Orders 06/17/18 Lunch Full Liquid Diet [DIET] 06/18/18 11:18 Notify Provider Consults [RC] ASDIRECTED Consult to Physician [CONS] Routine 06/18/18 Dinner NPO After Midnight [Nothing per Oral After Midnight Diet] [DIET] 06/19/18 05:00 BASIC METABOLIC PANEL,BMP [CHEM] Timed CBC W/O DIFF,HEMOGRAM [HEME] Timed (1) - Plan Plan:: ASSESSMENT / PLAN Biliary dyskinesia - right upper quadrant pain with nausea, vomiting and some diarrhea. HIDA scan confirmed severely reduced ejection fraction with CCK stimulation. Cholecystectomy is planned after discussing the potential treatment options with the patient. -consult Dr. Wu, cholecystectomy planned in the morning -Pain control if necessary Maintenance issues -Nutrition: Full liquids, nothing by mouth after midnight -Dykes catheter not indicated at this time -DVT: SCD -GI: PPI Disposition; home Brandon Nuñez M.D.
[2018-06-19] MEDS ORDERED: fentaNYL 250 MCG/5 ML SDV ONE (07:09)
[2018-06-19] MEDS ORDERED: Ondansetron 4 MG/2 ML SDV ONE (07:10)
[2018-06-19] MEDS ORDERED: Dexamethasone 4 MG/ML SDV ONE (07:10)
[2018-06-19] MEDS ORDERED: Rocuronium 50 MG/5 ML Vial ONE (07:10)
[2018-06-19] MEDS ORDERED: Propofol 200 MG/20 ML SDV ONE (07:10)
[2018-06-19] MEDS ORDERED: Neostigmine Methylsulfate 1 MG/ML 5 ML Syringe ONE (07:10)
[2018-06-19] MEDS ORDERED: Glycopyrrolate 0.2 MG/ML 5 ML MDV ONE (07:10)
[2018-06-19] MEDS ORDERED: Succinylcholine 200 MG/10 ML MDV ONE (07:10)
[2018-06-19] MEDS ORDERED: Lactated Ringers 1,000 ML IV SCH (07:15)
[2018-06-19] MEDS ORDERED: Ibuprofen 600 MG Tab PO ONE (08:00)
[2018-06-19] MEDS ORDERED: Acetaminophen 500 MG Tab PO ONE (08:00)
[2018-06-19] MEDS ORDERED: Bupivacaine 0.5%/EPINEPHrine 1:200,000 50 ML MDV ONE (08:34)
--- NOTE | 2018-06-19 08:38 | PN ---
DATE OF SERVICE: 06/19/2018 SUBJECTIVE: Carina is a 47-year-old female with biliary dyskinesia, biliary colic, pancreatitis. She is n.p.o. for a cholecystectomy today. She reports pain on the pain scale of 1-10 at 2/10 to 3/10 in her midepigastric area. She has no other associated signs and symptoms. She has been n.p.o. since midnight. OBJECTIVE: GENERAL: Carina Peacock is a 47-year-old female. VITAL SIGNS: TPR 97.2, 60, 16. Blood pressure 114/65. HEENT: Negative. NECK: Supple. HEART: Regular rate and rhythm. LUNGS: Clear. ABDOMEN: Tenderness is in the midepigastric and right upper quadrant. EXTREMITIES: Without peripheral edema. ASSESSMENT: Biliary dyskinesia, biliary colic, and pancreatitis. PLAN: Lactated Ringer's at 100 mL per hour. Consents have been signed. Orders to be written postoperatively. Remain n.p.o. Rupal Chakraborty PA-C /[id number]
[2018-06-19] MEDS ORDERED: Ropivacaine 32 ML, Dexamethasone 8 MG, EPINEPHrine 0.4 MG, Sodium Chloride 0.9% 45.6 ML NERVRT SCH ×4 (09:00)
[2018-06-19] MEDS ORDERED: Levofloxacin/Dextrose 5%-Water 500 MG in Premix Bag 1 BAG IV ONE (09:00)
[2018-06-19] MEDS ORDERED: Ketamine 500 MG/5 ML MDV IV SCH (09:00)
[2018-06-19] MEDS ORDERED: Scopolamine 1.5 MG Transdermal Patch TOP ONE (09:41)
[2018-06-19] MEDS ORDERED: Lactated Ringers 1,000 ML ONE (10:25)
[2018-06-19] MEDS ORDERED: fentaNYL/Normal Saline 600 MCG/30 ML PCA Vial IV PRN (12:08)
[2018-06-19] MEDS ORDERED: Naloxone 0.4 MG/ML SDV IV PRN (12:08)
[2018-06-19] MEDS: Dextrose 5%-Lactated Ringers 1,000 ML IV SCH ×2 (12:36→23:20)
[2018-06-19] MEDS ORDERED: Pantoprazole 40 MG Vial IVPUSH SCH (13:00)
[2018-06-19] MEDS: Ibuprofen 600 MG Tab PO SCH ×3 (13:08→23:20)
[2018-06-19] MEDS ORDERED: LORazepam 2 MG/ML SDV IVPUSH PRN (13:13)
--- NOTE | 2018-06-19 13:14 | PCM.PN ---
- General Info Date of Service: 06/19/18 Functional Status: Denies: Pain Controlled - Review of Systems Gastrointestinal: Reports: Abdominal Pain, Nausea Systems Review Comment:: there were no acute events overnight. The patient did have a cholecystectomy this morning and a sick appearing gallbladder was removed. She is having a fair amount of pain as well as nausea postoperatively. She did not have pain or nausea overnight prior to surgery. Vital signs have been stable since return from surgery. - Patient Data Vitals - Most Recent: Last Vital Signs Temp 35.3 C 06/19/18 11:44 Pulse 54 L 06/19/18 11:59 Resp 16 06/19/18 12:14 BP 105/61 06/19/18 12:14 Pulse Ox 99 06/19/18 12:14 Weight - Most Recent: 63.049 kg I&O - Last 24 Hours: Intake & Output 06/18/18 06/19/18 06/19/18 22:59 06:59 14:59 Intake Total 280 100 Output Total 1800 Balance -1520 100 Lab Results Last 24 Hours: Laboratory Results - last 24 hr 06/19/18 06/19/18 Range/Units 04:45 04:45 WBC 6.1 (4.5-11.0) K/uL RBC 3.66 (3.30-5.50) M/uL Hgb 10.9 L (12.0-15.0) g/dL Hct 32.1 L (36.0-48.0) % MCV 88 (80-98) fL MCH 30 (27-31) pg MCHC 34 (32-36) % Plt Count 192 (150-400) K/uL Sodium 141 (140-148) mmol/L Potassium 3.6 (3.6-5.2) mmol/L Chloride 106 (100-108) mmol/L Carbon Dioxide 27 (21-32) mmol/L Anion Gap 8.4 (5.0-14.0) mmol/L BUN 6 L (7-18) mg/dL Creatinine 0.7 (0.6-1.0) mg/dL Est Cr Clr Drug Dosing 84.56 mL/min Estimated GFR (MDRD) > 60 (>60) Glucose 85 (74-106) mg/dL Calcium 8.5 (8.5-10.1) mg/dL Med Orders - Current: Current Medications Acetaminophen (Tylenol Extra Strength) 1,000 mg PO Q6H [facility] Hydrocodone Bitart/Acetaminophen (Rowena 325-5 Mg) 1 - 2 tab PO Q4H PRN PRN Reason: PAIN Fentanyl Citrate (Fentanyl In Ns 20 Mcg/Ml 30 Ml Thread Marker) 0 mcg IV ASDIRECTED PRN; Protocol PRN Reason: PAEDIATRIC PHYSIOTHERAPIST PAIN Dextrose/Lactated Ringer's (Dextrose 5%-Lactated Ringers) 1,000 mls @ 100 mls/ hr IV ASDIRECTED [facility] Last Admin: 06/19/18 12:36 Dose: 100 mls/hr Cefoxitin Sodium 2 gm/ Sodium (Chloride) 50 mls @ 100 mls/hr IV Q6H [facility] Ibuprofen (Motrin) 600 mg PO Q6H [facility] Last Admin: 06/19/18 13:08 Dose: 600 mg Lorazepam (Ativan) 1 mg IVPUSH Q4H PRN PRN Reason: Nausea/Vomiting Naloxone HCl (Narcan) 0.1 mg IV ASDIRECTED PRN PRN Reason: RESP RATE BELOW Scopolamine Patch (Placement) 1 each TOP DAILY [facility] Last Admin: 06/19/18 13:09 Dose: Not Given Ondansetron HCl (Zofran) 4 mg IV Q4H PRN PRN Reason: Nausea/Vomiting Last Admin: 06/19/18 12:30 Dose: 4 mg Pantoprazole Sodium (Protonix Iv) 40 mg IVPUSH Q24H [facility] Last Admin: 06/19/18 13:09 Dose: 40 mg Scopolamine (Transderm-Scop) 1.5 mg TOP Q72H [facility] Discontinued Medications Acetaminophen (Tylenol) 650 mg PO Q4H PRN PRN Reason: Pain (Mild 1-3)/fever Last Admin: 06/18/18 11:45 Dose: 650 mg Acetaminophen (Tylenol Extra Strength) 1,000 mg PO ONETIME ONE Stop: 06/19/18 08:01 Last Admin: 06/19/18 08:40 Dose: 1,000 mg Albuterol (Proventil Neb Soln) 2.5 mg NEB Q4H PRN PRN Reason: Shortness Of Breath/wheezing Bisacodyl (Dulcolax) 5 mg PO DAILY PRN PRN Reason: Constipation Bupivacaine HCl/Epinephrine Bitart (Marcaine 0.5%/Epinephrine 1:200,000) Confirm Administered Dose 50 ml .ROUTE .STK-MED ONE Stop: 06/19/18 08:35 Last Admin: 06/19/18 10:35 Dose: 20 ml Ropivacaine 32 ml/Dexamethasone 8 mg/Epinephrine HCl 0.4 mg/ Sodium Chloride 45.6 ml 0 ml NERVRT ASDIRECTED [facility] Last Admin: 06/19/18 10:12 Dose: 80 syringe Dexamethasone (Dexamethasone) Confirm Administered Dose 4 mg .ROUTE .STK-MED ONE Stop: 06/19/18 07:11 Docusate Sodium (Colace) 100 mg PO BID PRN PRN Reason: Constipation Fentanyl (Sublimaze) Confirm Administered Dose 250 mcg .ROUTE .STK-MED ONE Stop: 06/19/18 07:10 Glycopyrrolate (Robinul) Confirm Administered Dose 1 mg .ROUTE .STK-MED ONE Stop: 06/19/18 07:11 Hydromorphone HCl (Dilaudid) 0.5 mg IVPUSH ONETIME ONE Stop: 06/16/18 22:33 Last Admin: 06/16/18 22:36 Dose: 0.5 mg Hydromorphone HCl (Dilaudid) 0.5 mg IVPUSH ONETIME ONE Stop: 06/16/18 23:16 Last Admin: 06/16/18 23:20 Dose: 0.5 mg Sodium Chloride (Normal Saline) 1,000 mls @ 999 mls/hr IV ASDIRECTED [facility] Last Admin: 06/16/18 22:44 Dose: 999 mls/hr Sodium Chloride (Normal Saline) 1,000 mls @ 999 mls/hr IV ASDIRECTED [facility] Last Admin: 06/16/18 23:45 Dose: 999 mls/hr Sodium Chloride (Normal Saline) 70 mls @ 3 mls/sec IV ASDIRECTED [facility] Stop: 06/17/18 00:28 Last Admin: 06/17/18 00:54 Dose: 3 mls/sec Lactated Ringer's (Ringers, Lactated) 1,000 mls @ 125 mls/hr IV ASDIRECTED [facility] Last Admin: 06/17/18 01:52 Dose: 125 mls/hr Lactated Ringer's (Ringers, Lactated) 500 mls @ 500 mls/hr IV ASDIRECTED [facility] Stop: 06/17/18 12:31 Levofloxacin/Dextrose 500 mg/ (Premix) 100 mls @ 100 mls/hr IV ONETIME ONE Stop: 06/19/18 09:59 Last Admin: 06/19/18 08:41 Dose: 100 mls/hr Lactated Ringer's (Ringers, Lactated) 1,000 mls @ 100 mls/hr IV ASDIRECTED [facility] Lactated Ringer's (Ringers, Lactated) Confirm Administered Dose 1,000 mls @ as directed .ROUTE .STK-MED ONE Stop: 06/19/18 10:26 Ibuprofen (Motrin) 600 mg PO ONETIME ONE Stop: 06/19/18 08:01 Last Admin: 06/19/18 08:40 Dose: 600 mg Iopamidol (Isovue-300 (61%)) 100 ml IV . DIRECTED [facility] Stop: 06/17/18 00:28 Last Admin: 06/17/18 00:54 Dose: 100 ml Ketamine HCl (Ketalar) 28 mg IV ASDIRECTED [facility] Lorazepam (Ativan) 1 mg IV Q6H PRN PRN Reason: Nausea/Vomiting Last Admin: 06/17/18 01:53 Dose: 1 mg Morphine Sulfate (Morphine) 2 mg IVPUSH Q2H PRN PRN Reason: Pain (severe 7-10) Neostigmine Methylsulfate (Neostigmine) Confirm Administered Dose 5 mg .ROUTE .STK-MED ONE Stop: 06/19/18 07:11 Ondansetron HCl (Zofran) 4 mg IVPUSH ONETIME ONE Stop: 06/16/18 22:33 Last Admin: 06/16/18 22:36 Dose: 4 mg Ondansetron HCl (Zofran) 4 mg IVPUSH ONETIME ONE Stop: 06/17/18 00:33 Last Admin: 06/17/18 00:42 Dose: 4 mg Ondansetron HCl (Zofran Odt) 4 mg PO Q6H PRN PRN Reason: Nausea able to take PO Ondansetron HCl (Zofran) Confirm Administered Dose 4 mg .ROUTE .STK-MED ONE Stop: 06/19/18 07:11 Oxycodone/Acetaminophen (Percocet 325-5 Mg) 1 tab PO Q4H PRN PRN Reason: Pain (moderate 4-6) Pantoprazole Sodium (Protonix Iv) 40 mg IV Q12H [facility] Last Admin: 06/17/18 01:53 Dose: 40 mg Pantoprazole Sodium (Protonix Iv) 40 mg IV Q12H [facility] Propofol (Diprivan 20 Ml) Confirm Administered Dose 200 mg .ROUTE .STK-MED ONE Stop: 06/19/18 07:11 Rocuronium [place] (Zemuron) Confirm Administered Dose 50 mg .ROUTE .STK-MED ONE Stop: 06/19/18 07:11 Scopolamine (Transderm-Scop) 1.5 mg TOP ONETIME ONE Stop: 06/19/18 09:42 Last Admin: 06/19/18 10:11 Dose: 1.5 mg Succinylcholine Chloride (Quelicin) Confirm Administered Dose 200 mg .ROUTE .STK -MED ONE Stop: 06/19/18 07:11 Zolpidem Tartrate (Ambien) 5 mg PO BEDTIME PRN PRN Reason: Sleep - Exam Quality Assessment: No: Supplemental Oxygen General: Alert, Oriented, Cooperative, Moderate Distress Lungs: Normal Respiratory Effort - Problem List Review Problem List Initiated/Reviewed/Updated: Yes - My Orders Last 24 Hours: My Active Orders 06/19/18 13:13 LORazepam [Ativan] 1 mg IVPUSH Q4H PRN - Plan Plan:: ASSESSMENT / PLAN Biliary dyskinesia - status post left per scopic cholecystectomy today. Having a fair amount of pain and nausea postoperatively. -symptom management including pain and nausea control -repeat labs in the morning Maintenance issues -Nutrition: advance diet as tolerated once nausea improves -Dykes catheter - not indicated at this time -DVT: SCD -GI: PPI Disposition; home Brandon Nuñez M.D.
[2018-06-19] MEDS ORDERED: SCOPOLAMINE PATCH PLACEMENT TOP SCH (14:00)
[2018-06-19] MEDS: Acetaminophen/HYDROcodone 325-5 MG Tab PO PRN ×2 (14:34→21:46)
[2018-06-19] MEDS: cefOXitin 2 GM in Sodium Chloride 0.9% 50 ML IV SCH ×2 (16:37→21:49)
[2018-06-19] MEDS: Acetaminophen 500 MG Tab PO SCH ×2 (16:38→21:47)
[2018-06-20] MEDS: Acetaminophen 500 MG Tab PO SCH (04:15)
[2018-06-20] MEDS: cefOXitin 2 GM in Sodium Chloride 0.9% 50 ML IV SCH (04:16)
[2018-06-20] MEDS: Ibuprofen 600 MG Tab PO SCH (06:26)
[2018-06-20 07:20] VITALS: BP 89/50
[2018-06-20] MEDS: Acetaminophen/HYDROcodone 325-5 MG Tab PO PRN (08:48)
[2018-06-22] MEDS ORDERED: Scopolamine 1.5 MG Transdermal Patch TOP SCH (09:00)
--- NOTE | 2018-06-23 07:53 | DISCH ---
ADMISSION DIAGNOSIS: Biliary dyskinesia. DISCHARGE DIAGNOSES: Laparoscopic cholecystectomy for biliary dyskinesia. DATE OF SURGERY: 06/19/2018. HISTORY/HOSPITAL COURSE: Carina Peacock is a 47-year-old female, who presented to the emergency room on 06/16/2018. She was admitted to the hospital for possible pancreatitis. This was ruled out. She had an abdominal CT scan on 06/17/2018 and HIDA scan on 06/18/2018. The HIDA scan did reveal an ejection fraction of 7.6%. After preoperative evaluation and discussion of the possible risks and possible complications, the patient wished to proceed with surgical procedure. Surgery was on 06/19/2018. She had no operative complications and was ready to be discharged to home on 06/20/2018. PHYSICAL EXAMINATION: GENERAL: Carina Peacock is a 47-year-old female. VITAL SIGNS: Height is 5 feet 4 inches. Weight is 139 pounds. TPR is 98.1, 68, 18. Blood pressure 100/62. HEENT: Negative. NECK: Supple. HEART: Regular rate and rhythm. LUNGS: Clear. ABDOMEN: Dressings were taken down. She has 3 trocar sites with sutures in place. She does have some bruising at the upper midline trocar site. Otherwise, they are soft and normally tender. Abdominal binder has been on. EXTREMITIES: Without peripheral edema. DISPOSITION: Discharged to home. CONDITION: Stable and improving. FOLLOWUP APPOINTMENT: Rupal Chakraborty PA-C, on 06/27/2018 at 10:00 a.m. HOME MEDICATIONS: 1. [place] 5/325 mg 1 tablet every 4 hours p.r.n. pain, #20. 2. Extra Strength Tylenol 1000 mg oral q.6 hours p.r.n. pain and to watch the amount of Tylenol. 3. Milk of magnesia 30 mL, to take one daily and two were sent home with the patient. 4. Zofran 4 mg q.6 hours sublingual p.r.n. nausea, #30. She is to resume her home medications: 1. Vitamin D3 two tablets before breakfast. 2. EstroDIM 2 tablets oral twice daily. 3. Flovent Diskus 50 mcg inhalation daily. 4. Iron Extra 1 tablet twice daily. 5. Niacin 1 tablet oral as directed. 6. Fish oil 1 tablet oral daily. 7. Pyridoxal phosphate 50 mg twice daily. 8. TetraCumin 2 tablets oral twice daily. 9. Zinc 1 tablet oral twice daily. DIET AFTER DISCHARGE: Usual diet as tolerated. Drink 8 to 10 glasses of water a day. ACTIVITY: No lifting greater than 10 pounds for 2 weeks. Walk about 6 times inside your home, increasing as tolerated. Driving, do not drive on pain medication. Shower/bathing: May shower. DISCHARGE INSTRUCTIONS: Notify provider if any fever, increased pain, nausea, or vomiting. Keep site clean and dry. Wear abdominal binder for 2 weeks and then as tolerated. SPECIAL INSTRUCTIONS: Use incentive spirometer 10 times every hour while awake for 1 week.
--- NOTE | 2018-06-23 22:53 | CONS ---
DATE OF SERVICE: 06/18/2018 REFERRING PHYSICIAN: CONSULTING PHYSICIAN: Adam Wu MD This is a 47-year-old, admitted with abdominal pain. Initially, she was noted to have some elevation of her lipase that has now normalized. Initial ultrasound showed no obvious pathology in the gallbladder and the patient earlier today then had a CCK-stimulated HIDA scan, which showed a below normal ejection fraction along with the CCK injection, reproducing the patient's episodes of symptoms. She has had symptoms suggestive of biliary colic for at least several months. After discussion, we proceeded with laparoscopic cholecystectomy tomorrow. Potential risks of the procedure including bleeding, infection, injury to the common bile duct or other adjacent structures, possibility of stones moving into the common bile duct requiring additional procedures for correction as well as possibility of incomplete relief of symptoms were all gone over and the patient wishes to proceed. Surgery will be undertaken tomorrow morning. Adam Wu MD /[id number]
--- NOTE | 2018-06-23 23:47 | OR ---
DATE OF PROCEDURE: 06/19/2018 PREOPERATIVE DIAGNOSIS: Biliary dyskinesia. POSTOPERATIVE DIAGNOSIS: Biliary dyskinesia. OPERATIVE PROCEDURE: Laparoscopic cholecystectomy (56970). ANESTHESIA: General. JEWEL HOLE CORNERER: Rupal Chakraborty PA-C. INDICATIONS FOR PROCEDURE: Please see consultation dictated yesterday. DETAILS OF PROCEDURE: The patient was taken to the operating room. After general endotracheal anesthesia was induced, the abdomen was prepped and draped. A transverse incision in the epigastrium was made and the peritoneal cavity was entered under direct vision with an Optiview trocar, and inflated to 15 mmHg pressure with CO2. Laparoscope was then re-inserted. No underlying trocar insertion site injuries were seen. Bilateral transversus abdominis plane blocks were placed in the subcostal position, with direct visualization of the needle in the correct plane and injection of the standard solution bilaterally. Following this, a 12-mm subumbilical trocar was placed along with a single 5- mm right abdominal trocar. The upper abdomen was examined. The patient was noted to have a distended and an edematous gallbladder with loss of the usual blue coloration. The gallbladder was retracted anteriorly and laterally, and dissection began on the gallbladder neck and continued around the gallbladder neck-cystic duct junction. Once that area was well delineated as well as the adjacent cystic artery, the duct was initially divided flush with the gallbladder neck with a CRYSTAL brito load. This was done as the tissue there was quite friable, and it was felt that a clip would have a higher risk of eroding through. The artery was then clipped 3 times proximally and then divided distally with the Harmonic scalpel, and this dissection then continued off the gallbladder bed using Harmonic scalpel. Then, the gallbladder was delivered through the epigastric trocar site. It contained a small amount of sludge along with obvious cholesterolosis of the gallbladder wall. The area of dissection was inspected. No bleeding or bile leaks were seen. A drain was felt not to be necessary. The trocars were then sequentially removed, and the fascia at the 12-mm site was closed with 0 Vicryl stitch and the skin with 4-0 Vicryl skin stitch. Dressing was applied. The patient was taken to the recovery room in a satisfactory condition. Physician gynecological assistant, Rupal Chakraborty, played an essential role in assisting in this case, helping to position the patient, retract structures as needed, as well as suturing and cutting sutures when indicated. Her presence improved patient safety and decreased the operative time. Adam Wu MD /[id number]
== END 2018-06-20 10:30 | disposition home or self-care (01) | DRG 419 ==
LOC: JP.ED 22:00 → JP.MS 06-17 00:51
PROVIDERS: ADMIT Internal Medicine; ATTEND Internal Medicine
PROC: 0FT44ZZ Resection of Gallbladder, Percutaneous Endoscopic Approach (ICD-10-PCS; principal; 2018-06-19)
PROC: 3E0T3BZ Introduction of Anesthetic Agent into Peripheral Nerves and Plexi, Percutaneous Approach (ICD-10-PCS; 2018-06-19)
DX: K82.8 Other specified diseases of gallbladder (principal); Z87.440 Personal history of urinary (tract) infections; Z88.0 Allergy status to penicillin; Z88.2 Allergy status to sulfonamides
CPT/HCPCS: 36415; 74177; 76705; 78227; 78227-26; 80048; 80053; 81001; 82150; 82247; 83690; 84075; 84484; 85025; 85027; 93005; 96361; 96374; 96375; 96376; 99285-25; A9270-GY; C9113; J0171; J0330; J0694; J1100; J1170; J1956; J2060; J2405; J2704; J2710; J2795; J3010; J3490; J7030; J7042; J7050; J7120; Q9967

== ENCOUNTER 2019-01-13 11:19 | Emergency (ER) | payer OTHER ==
[2019-01-13 11:31] VITALS: BP 124/53
--- NOTE | 2019-01-13 12:13 | EDM.PDOC ---
<Mariela Dent - Last Filed: 01/13/19 12:13> ED HPI GENERAL MEDICAL PROBLEM - General Chief Complaint: General Stated Complaint: FAINTING EPISODE Time Seen by Provider: 01/13/19 11:44 Source of Information: Reports: Patient, Other (Friend) History Limitations: Reports: No Limitations - History of Present Illness INITIAL COMMENTS - FREE TEXT/NARRATIVE: Carina Peacock is a 48 year old female who presents with concerns of a syncopal episode. Her friend accompanied her to the visit. She states she was at [employer] study and when she got up to start walking her right thigh felt like it was cramping, then the cramp shifted to her left leg. She then sat down because she felt lightheaded. She does not exactly recall the event but her friend states she then lost consciousness for about 30 seconds max, while sitting. Her friend states that he left arm had some jerking movement when she lost consciousness. When she woke up she knew where she was and knew what had happened. She was able to walk and come to the ED. She states a similar even occurred about 1 year ago. She denies any chronic medical issues or arrhythmias. She did not eat breakfast this AM and reports just having a cup of coffee. Last BM was this AM. Denies constipation, diarrhea and sickness. Further symptoms are denied at this time. - Related Data Allergies Allergy/AdvReac Type Severity Reaction Status Date / Time Penicillins Allergy Difficulty Verified 01/13/19 11:29 Swallowing Sulfa (Sulfonamide Allergy Rash Verified 01/13/19 11:29 Antibiotics) Home Meds: Home Meds NK [No Known Home Meds] 01/13/19 [History] Past Medical History HEENT History: Reports: Sinusitis Gastrointestinal History: Reports: None Genitourinary History: Reports: UTI, Recurrent BOX OFFICE ATTENDANT History: Reports: , Other (See Below) Other BOX OFFICE ATTENDANT History: menorrhagia with regular cycles Neurological History: Reports: Migraines Psychiatric History: Reports: Anxiety, Depression - Infectious Disease History Infectious Disease History: Reports: Chicken Pox - Past Surgical History Head Surgeries/Procedures: Reports: None HEENT Surgical History: Reports: LASIK, Tonsillectomy GI Surgical History: Reports: Cholecystectomy Neurological Surgical History: Reports: None Social & Family History - Family History Family Medical History: Noncontributory - Tobacco Use Smoking Status *Q: Never Smoker Second Hand Smoke Exposure: No - Caffeine Use Caffeine Use: Reports: Coffee, Soda, Tea - Recreational Drug Use Recreational Drug Use: No - Living Situation & Occupation Living situation: Reports: ED ROS GENERAL - Review of Systems Review Of Systems: ROS reveals no pertinent complaints other than HPI. ED EXAM, GENERAL - Physical Exam Exam: See Below Exam Limited By: No Limitations General Appearance: Alert, WD/WN, No Apparent Distress Ears: Normal External Exam, Normal Canal, Hearing Grossly Normal, Normal TMs Nose: Normal Inspection, Normal Mucosa Throat/Mouth: Normal Inspection, Normal Lips, Normal Teeth, Normal Gums, Normal Oropharynx, Normal Voice Head: Atraumatic, Normocephalic Neck: Normal Inspection, Supple, Non-Tender, Full Range of Motion Respiratory/Chest: No Respiratory Distress, Lungs Clear, Normal Breath Sounds, No Accessory Muscle Use Cardiovascular: Normal Peripheral Pulses, Regular Rate, Rhythm, No Edema, No Murmur GI/Abdominal: Normal Bowel Sounds, Soft, Non-Tender, No Organomegaly, No Distention Back Exam: Normal Inspection Extremities: Normal Inspection, Non-Tender, No Pedal Edema Neurological: Alert, Oriented, CN II-XII Intact, Normal Cognition, No Motor/ Sensory Deficits Psychiatric: Normal Affect, Normal Mood Skin Exam: Warm, Intact, Normal Color, No Rash Course - Vital Signs Last Recorded V/S: Last Vital Signs Temp 96.3 F 01/13/19 11:31 Pulse 61 01/13/19 11:31 Resp 16 01/13/19 11:31 BP 124/53 L 01/13/19 11:31 Pulse Ox 98 01/13/19 11:31 - Orders/Labs/Meds Orders: Active Orders 24 hr Category Date Time Status EKG Documentation Completion [RC] ASDIRECTED Care 01/13/19 12:08 Active EKG 12 Lead [EK] Routine Ther 01/13/19 12:06 Ordered Labs: Laboratory Tests 01/13/19 01/13/19 01/13/19 Range/Units 12:06 12:20 12:40 WBC 6.5 (4.5-11.0) K/uL RBC 4.75 (3.30-5.50) M/uL Hgb 14.1 D (12.0-15.0) g/dL Hct 41.3 (36.0-48.0) % MCV 87 (80-98) fL MCH 30 (27-31) pg MCHC 34 (32-36) % Plt Count 245 (150-400) K/uL Neut % (Auto) 61 (36-66) % Lymph % (Auto) 29 (24-44) % [place] % (Auto) 7 H (2-6) % Eos % (Auto) 2 (2-4) % Baso % (Auto) 1 (0-1) % Sodium 137 L (140-148) mmol/L Potassium 4.0 (3.6-5.2) mmol/L Chloride 101 (100-108) mmol/L Carbon Dioxide 26 (21-32) mmol/L Anion Gap 14.0 (5.0-14.0) mmol/L BUN 15 D (7-18) mg/dL Creatinine 0.7 (0.6-1.0) mg/dL Est Cr Clr Drug Dosing 83.03 mL/min Estimated GFR (MDRD) > 60 (>60) Glucose 95 (74-106) mg/dL Calcium 9.4 (8.5-10.1) mg/dL Urine Color Yellow Urine Appearance Clear Urine pH 5.0 (4.5-8.0) Ur Specific [place] 1.020 (1.008-1.030) Urine Protein Negative (NEGATIVE) mg/dL Urine Glucose (UA) Normal (NEGATIVE) mg/dL Urine Ketones Negative (NEGATIVE) mg/dL Urine Occult Blood Trace (NEGATIVE) Urine Nitrite Negative (NEGATIVE) Urine Bilirubin Negative (NEGATIVE) Urine Urobilinogen Normal (NORMAL) mg/dL Ur Leukocyte Esterase Negative (NEGATIVE) Urine RBC 0-5 (0-5) Urine WBC 0-5 (0-5) Ur Epithelial Cells Few Amorphous Sediment Few Urine Bacteria Not seen Urine Mucus Not seen Departure - Departure Disposition: Home, Self-Care 01 Clinical Impression: Syncope Qualifiers: Syncope type: unspecified Qualified Code(s): R55 - Syncope and collapse - Discharge Information Referrals: Wilman Bill MD [Primary Care Provider] - Forms: ED Department Discharge Additional Instructions: Please followup with your primary care provider in 3-5 days if not better, please call return to the emergency department with worsening of symptoms. <OfficerJono - Last Filed: 01/13/19 12:58> ED EXAM, GENERAL - Physical Exam Free Text/Narrative:: Agree with below exam Departure - Departure Time of Disposition: 12:57 Condition: Fair - Assessment/Plan Plan: Assessment Acuity = acute Site and laterality = syncopal event Etiology = unclear etiology Manifestations = none Location of injury = Home Lab values = CBC, BMP, urinalysis unremarkable EKG demonstrates sinus rhythm with a right bundle branch block is not new prior EKG in 2018 Plan Did review lab work EKG results with her she remained asymptomatic while in the ED plan a follow-up primary care to 5 days if no improvement Jono Mcneal MD was personally available for consultation in the ED. I have reviewed the chart and agree with the documentation as recorded by the JUAN Cardoso, including the assessment, treatment plan and disposition. Jono Mcneal MD personally saw and examined the patient. I have reviewed and agree with the PA Student's findings. This note was dictated using Style on [employer] voice recognition software please call with any questions on syntax or grammar.
== END 2019-01-13 13:04 | disposition home or self-care (01) ==
LOC: JP.ED 11:19
DX: R55 Syncope and collapse (principal); Z87.440 Personal history of urinary (tract) infections; Z98.890 Other specified postprocedural states; Z90.49 Acquired absence of other specified parts of digestive tract; Z88.0 Allergy status to penicillin; Z88.2 Allergy status to sulfonamides
CPT/HCPCS: 36415; 80048; 81001; 85025; 93005; 99284-25

== ENCOUNTER 2022-03-16 07:30 | Day surgery (SDC) | payer OTHER ==
[~2022-03-16 07:30] MED LIST: Bupivacaine 0.5% 30 ML SDV ONE; Lidocaine 1% 20 ML MDV ONE; Midazolam 1 MG/ML 2 ML SDV ONE; Propofol 200 MG/20 ML SDV ONE; fentaNYL 100 MCG/2 ML SDV ONE
[2022-03-16] MEDS ORDERED: Lidocaine 0.5% 50 ML SDV ONE (07:32)
[2022-03-16] MEDS ORDERED: Acetaminophen 500 MG Tab PO ONE (08:00)
[2022-03-16] MEDS ORDERED: Dextrose 5%-Lactated Ringers 1,000 ML IV SCH (08:00)
[2022-03-16] MEDS ORDERED: ceFAZolin 2 GM in Premix Bag 1 BAG IV ONE (08:30)
[2022-03-16 12:29] VITALS: BP 114/48; PULSE 66
== END 2022-03-16 12:32 | disposition home or self-care (01) ==
LOC: JP.SDS 07:30
PROVIDERS: ATTEND Surgery
DX: B07.9 Viral wart, unspecified (principal)
CPT/HCPCS: A9270-GY; J0690; J2250; J2704; J3010; J3490; J7121

== ENCOUNTER 2022-03-17 09:15 | Emergency (ER) | payer OTHER ==
[2022-03-17 09:30] VITALS: BP 128/66; PULSE 68
== END 2022-03-17 10:33 | disposition home or self-care (01) ==
LOC: JP.ED 09:15
DX: G89.18 Other acute postprocedural pain (principal); M79.644 Pain in right finger(s); Z88.0 Allergy status to penicillin; Z88.2 Allergy status to sulfonamides
CPT/HCPCS: 99282; 99283